=== PATIENT | female | born 1980 | race African-American/Black ===

== ENCOUNTER 2024-02-15 18:47 | Emergency (ER) | payer BC, SELFPAY ==
--- NOTE | ~2024-02-15 | XR_ITS ---
EXAMINATION: XR chest 2V DATE: 02/15/2024 20:14 INDICATION: Chest pain TECHNIQUE: PA and lateral views of the chest are obtained. COMPARISON: None available FINDINGS: The lungs are free of acute opacities. No pleural effusion or pneumothorax. The cardiomedia stinal silhouette is normal. The visualized bones and soft tissues are unremarkable. IMPRESSION: 1. No acute cardiopulmonary abnormality. Reviewed, dictated and finalized at location F.
--- NOTE | 2024-02-15 18:50 | ECG_ITS ---
Measurements Intervals Mason Rate: 66 P: 51 TN: 156 QRS: -5 QRSD: 82 T: 13 QT: 403 QTc: 425 Interpretive Statements SINUS RHYTHM ANTERIOR INFARCT, AGE INDETERMINATE BORDERLINE T WAVE ABNORMALITY- INF/LAT LEADS ABNORMAL ECG NO PREVIOUS ECG AVAILABLE FOR COMPARISON Electronically Signed On 02-16-2024 6:32:49 CDT by Darryl Rizvi D.O.
[2024-02-15 18:59] VITALS: BP 199/91; PULSE 72; RESP 18; TEMP 36.6; O2SAT 100
[2024-02-15] MEDS: ASPIRIN 81 MG CHEWABLE TABLET 324 MG PO (19:09)
[2024-02-15 19:21] LABS: Basophils Percent Auto 0.5 % (0.2-1.2); Eosinophils Absolute Auto 0.1 K/mm3 (0-0.3); Eosinophils Percent Auto 1.4 % (0-4.4); Hematocrit 34.1 % (37.0-47.0); Hemoglobin 10.3 g/dL (12.0-15.0); Immature Granulocyte Absolute 0.02 K/mm3 (0.00-0.031); Immature Granulocyte Percent A 0.3 % (0-0.5); Lymphocytes Absolute Auto 2.13 K/mm3 (0.9-3.2); Lymphocytes Percent Auto 32.4 % (18.3-44.2); Mean Corpuscular HGB Conc 30.2 g/dl (32-36); Mean Corpuscular Hemoglobin 23.5 pg (26-34); Mean Corpuscular Volume 77.9 fl (80-100); Mean Platelet Volume 9.8 fl (7.4-10.4); Monocytes Absolute Auto 0.6 K/mm3 (0.1-0.6); Monocytes Percent Auto 8.8 % (2.6-8.5); Neutrophils Absolute Auto 3.7 K/mm3 (1.3-6.7); Neutrophils Percent Auto 56.6 % (45.5-73.1); Platelet Count Result 328 k/mm3 (150-375); Red Blood Count 4.38 M/mm3 (4.2-5.4); Red Cell Distribution Width 16.8 % (11.5-14.5); White Blood Count 6.6 K/mm3 (4.5-10.0)
[2024-02-15 19:39] LABS: Alanine Aminotransferase 22 U/L (6-35); Albumin Level 4.3 g/dL (3.5-5.1); Alkaline Phosphatase 81 U/L (38-126); Anion Gap 6 mmol/L (8-16); Aspartate Amino Transferase 34 U/L (14-36); Bilirubin,Total 0.7 mg/dL (0.2-1.3); Blood Urea Nitrogen 9 mg/dL (7-17); Carbon Dioxide 24 mmol/L (22-30); Chloride 107 mmol/L (98-107); Estimated CRCL calculation 77 ml/min; Estimated Glomerular Filt Rate > 60; Glucose 93 mg/dL (65-110); Lipase 93 U/L (23-300); Potassium 3.8 mmol/L (3.4-5.0); Sodium 137 mmol/L (137-145)
[2024-02-15 19:43] LABS: INR 0.9; Prothrombin Time 12.3 Seconds (11.1-14.7)
[2024-02-15 19:44] LABS: Partial Thromboplastin Time 28.7 Seconds (22.3-36.8)
[2024-02-15 19:50] LABS: Troponin I < 0.012 ng/mL (0.000-0.034)
[2024-02-15 20:55] VITALS: BP 185/87; PULSE 71; RESP 16; O2SAT 100
[2024-02-15 21:15] VITALS: O2SAT 100
--- NOTE | 2024-02-15 21:50 | ECG_ITS ---
Measurements Intervals [place] Rate: 61 P: 50 LA: 161 QRS: 0 QRSD: 80 T: 12 QT: 430 QTc: 436 Interpretive Statements SINUS RHYTHM LOW QRS VOLTAGE IN PRECORDIAL LEADS ANTEROSEPTAL INFARCT, AGE INDETERMINATE BORDERLINE T WAVE ABNORMALITY- INF/LAT LEADS ABNORMAL ECG COMPARED TO ECG 02/15/2024 18:59:11 NO SIGNIFICANT CHANGES Electronically Signed On 02-16-2024 6:36:34 CDT by Darryl Rizvi D.O.
[2024-02-15 22:35] LABS: Troponin I < 0.012 ng/mL (0.000-0.034)
--- NOTE | 2024-02-15 22:35 | ED.GENADULT ---
HPI - General Adult General Chief complaint: Chest Pain Stated complaint: Hypertension Time Seen by Provider: 02/15/24 22:04 History of Present Illness HPI narrative: This is a 44-year-old female presenting with chief complaint of hypertension. Patient took a energy pill earlier. since then she having some fluttering and discomfort in her chest. However she has been having this chest discomfort for several years had several times per week. the pain is described as achy pain in the center of her chest that is nonradiating, 5/10 intensity, comes and goes several times a day and several times a week. tt is not associated with diaphoresis vomiting or exertion. like She checked her blood pressure since then has been elevated at 170/100. She says she has checked her blood pressure too many times to count. She then came to the hospital for evaluation after being told that her blood pressure was dangerously high. At the moment the patient is pain-free with no chest pain difficulty breathing or neurologic symptoms. Related Data Allergies Allergy/AdvReac Type Severity Reaction Status Date / Time latex AdvReac Hives Verified 02/15/24 19:08 Exam Narrative: APPEARANCE: Patient is well-appearing pleasant polite Head: atraumatic. EYES: EOMI, NOSE: Atraumatic NECK: Trachea midline RESPIRATORY: No increased rate of breathing clear auscultation CARDIOVASCULAR: RRR, no peripheral edema ABDOMINAL: Non-distended MUSCULOSKELETAl: No obvious deformities NEURO: Alert. Cranial nerves 2-12 grossly intact. Sensation light touch, motor function cerebellar function intact for 4 extremities. Gait exam was normal. SKIN:: Warm, dry. Normal color PSYCHIATRIC: Normal affect Course Vital Signs Vital signs: Vital Signs Temperature 97.9 F 02/15/24 18:59 Pulse Rate 72 02/15/24 18:59 Respiratory Rate 18 02/15/24 18:59 Blood Pressure 199/91 H 02/15/24 18:59 Pulse Oximetry 100 02/15/24 18:59 Oxygen Delivery Room Air 02/15/24 18:59 Temperature 97.9 F 02/15/24 18:59 Pulse Rate 71 02/15/24 20:55 Respiratory Rate 16 02/15/24 20:55 Blood Pressure 185/87 H 02/15/24 20:55 Pulse Oximetry 100 02/15/24 21:15 Oxygen Delivery Room Air 02/15/24 21:15 Medical Decision Making MDM Narrative Medical decision making narrative: -Course: 44-year-old female presenting with concerns about hypertension And chest pain. Chest pain has been chronic for years and is noncardiac. Blood pressures are mildly elevated improving without intervention. at this time patient is asymptomatic. Patient will be discharged with primary care follow-up for further management possible hypertension. 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 Chest x-ray normal. Independent EKG interpretation: Rhythm [sinus], Rate [66], [place] -[normal], [place] -[normal], QRS [narrow], QTC [normal], T waves -[negative for concerning inversions], ST Segments - [Negative for concerning elevations] Final interpretations: [Normal Sinus Rhythm] -Shared decision making / Disposition:discharged. Vital Signs Vital Signs: Vital Signs Temperature 97.9 F 02/15/24 18:59 Pulse Rate 72 02/15/24 18:59 Respiratory Rate 18 02/15/24 18:59 Blood Pressure 199/91 H 02/15/24 18:59 Pulse Oximetry 100 02/15/24 18:59 Oxygen Delivery Room Air 02/15/24 18:59 Temperature 97.9 F 02/15/24 18:59 Pulse Rate 71 02/15/24 20:55 Respiratory Rate 16 02/15/24 20:55 Blood Pressure 185/87 H 02/15/24 20:55 Pulse Oximetry 100 02/15/24 21:15 Oxygen Delivery Room Air 02/15/24 21:15 Lab Data 02/15/24 19:10 02/15/24 19:10 Labs: Lab Results 02/15/24 02/15/24 Range/Units 19:10 21:59 WBC 6
[2024-02-15 22:57] VITALS: BP 156/82; PULSE 63; RESP 16; O2SAT 99
== END 2024-02-15 22:59 | disposition home or self-care (01) ==
LOC: ANHED 22:46
PROVIDERS: Emergency Medicine; Emergency Provider Emergency Medicine
DX: R07.89 Other chest pain (principal); I10 Essential (primary) hypertension; R94.31 Abnormal electrocardiogram [ECG] [EKG]
CPT/HCPCS: 36415; 71046; 80053; 83690; 84484; 85025; 85610; 85730; 93005; 99284; A9270

== ENCOUNTER 2024-06-12 12:43 | Emergency (ER) | payer OTHER, BC, SELFPAY ==
--- NOTE | ~2024-06-12 | XR_ITS ---
XR elbow RT min 3V Ordering provider: Anton Moon APRN History: . elbow injury, hit/lift injury, minimal swelling . Comparison: None. FINDINGS: BONES: Sclerotic area in the radial head is seen which may indicate a fracture. Follow-up advised. JOINT SPACES: Normal. SOFT TISSUES: Unremarkable. No definite joint effusion. IMPRESSION: Sclerotic area in the radial head is seen which may indicate a fracture. Follow-up advised. Reviewed, dictated and finalized at location A. IMPRESSION: Sclerotic area in the radial head is seen which may indicate a fracture. Follow -up advised.
[2024-06-12 12:55] VITALS: BP 155/99; PULSE 91; RESP 16; TEMP 37.2; O2SAT 100
--- NOTE | 2024-06-12 14:35 | ED.UPPEXIN ---
HPI - Extremity Injury (Upper) General Chief Complaint: Extremity Injury, Upper Stated Complaint: r arm pain Time Seen by Provider: 06/12/24 12:52 History of Present Illness HPI narrative: 44-year-old female presents to the emergency room for evaluation of right elbow pain sustained an injury a couple of days ago. 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 Patient states that she immediately experienced pain in her forearm and triceps. States she experienced pain to her right elbow that was worse with extension. Took Tylenol with some improvement of pain. Admits to increased weakness to her right arm. Related Data Allergies Allergy/AdvReac Type Severity Reaction Status Date / Time latex AdvReac Hives Verified 06/12/24 14:04 Review of Systems Review of Systems: ROS unremarkable except for noted in HPI Exam Narrative: GENERAL: Well-appearing, well-nourished, no physical limitations, and in no acute distress. HEAD: Normocephalic, atraumatic. EYES: Conjunctivae normal, PERRLA and EOMI. CHEST: Clear to auscultation. No respiratory distress. No wheezes rales or rhonchi. HEART: Regular rate and rhythm. No murmur heard. Normal peripheral pulses. EXTREMITIES: RUE: +TTP to olecranon, no obvious bony abnormality, no ecchymosis, full range of motion of elbow joint. 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 No noted wounds NEURO: No focal deficits. Alert and oriented x3. MAEW. CN's II-XI intact bilaterally, normal gait PSYCH: Cooperative. Normal mood and affect. Course Vital Signs Vital signs: Vital Signs Temperature 37.2 C 06/12/24 12:55 Pulse Rate 91 06/12/24 12:55 Respiratory Rate 16 06/12/24 12:55 Blood Pressure 155/99 H 06/12/24 12:55 Pulse Oximetry 100 06/12/24 12:55 Oxygen Delivery Room Air 06/12/24 12:55 Temperature 37.2 C 06/12/24 12:55 Pulse Rate 91 06/12/24 12:55 Respiratory Rate 16 06/12/24 12:55 Blood Pressure 155/99 H 06/12/24 12:55 Pulse Oximetry 100 06/12/24 12:55 Oxygen Delivery Room Air 06/12/24 12:55 MDM - Extremity Injury (Upper) Imaging Data Radiologist's impression: Impressions Elbow X-Ray 06/12/24 15:35 IMPRESSION: Sclerotic area in the radial head is seen which may indicate a fracture. Follow-up advised. Discharge Plan Discharge Clinical Impression: Cubital tunnel syndrome on right, Closed fracture of left elbow Patient Disposition: Home, Self-Care Condition: Stable Instructions: Antibiotic Form, Arm Fracture in Adults (ED) Follow-up/Referrals: Jonas Angel MD [Physician] - UNKNOWN,DOCTOR [Primary Care Provider] - Stand Alone Forms: Work/School Release IP Time of Disposition: 15:41
[2024-06-12 15:45] VITALS: BP 123/87; PULSE 87; RESP 19; O2SAT 97
== END 2024-06-12 16:00 | disposition home or self-care (01) ==
PROVIDERS: Emergency Provider Nurse Practitioner Family
DX: S42.401A Unspecified fracture of lower end of right humerus, initial encounter for closed fracture (principal); G56.21 Lesion of ulnar nerve, right upper limb; W22.8XXA Striking against or struck by other objects, initial encounter
CPT/HCPCS: 29105; 73080; 99284; A4565

== ENCOUNTER 2025-01-29 11:42 | Emergency (ER) | payer MEDICAID, SELFPAY ==
[2025-01-29 11:46] VITALS: BP 169/102; PULSE 74; RESP 16; TEMP 36.7; O2SAT 100
--- NOTE | 2025-01-29 12:42 | ED_ITS ---
HPI - Dental/Oral General Chief complaint: Dental/Oral Stated complaint: Left side face swelling Time Seen by Provider: 01/29/25 12:02 History of Present Illness HPI Narrative: Patient is a 45-year-old female who presents ER with left-sided dental pain. Upper jaw. Radiates to her ear. No facial swelling but thinks it may be starting. No intraoral swelling. No fevers chills or sweats. Related Data Allergies Allergy/AdvReac Type Severity Reaction Status Date / Time latex AdvReac Hives Verified 06/20/24 08:45 Review of Systems Constitutional: Constitutional: Reports no additional constitutional complaints ENT: Reports system reviewed and no additional complaints, except as documented PMFSH Family History Family History (Updated 06/20/24 @ 08:46 by WILLIAM Parikh) Father No problems noted. Mother Diabetes mellitus Sibling No problems noted. Social History Social History (Updated 06/20/24 @ 08:47 by WILLIAM Parikh) Smoking status: Never smoker Second hand tobacco smoke exposure: Yes Alcohol intake: current Substance use: never Substance use type: does not use Do You Feel Safe in your Home?: Yes Lack of Transportation: No Lack of Food: Never True Current Housing: I Have Housing Concerned About Future Housing: No Difficulty Paying Gas/Electric Bills: Decline to Answer Difficulty Paying for Meds: Decline to Answer Currently Unemployed: Decline to Answer Education: Trade/Vocational Certificate Difficulty w/ Childcare or Family Care: No Living arrangements: with family Occupation/Education: occupation 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 HEAD: Normocephalic, atraumatic ENT: Tender at tooth number 13. No discernible abscess. EXTREMITIES: Normal range of motion. No edema. SKIN: Warm, dry, no rash. NEURO: Alert and oriented x3. PSYCH: Normal mood and affect. Course Course Emergency Course: Resting comfortably. Discharge with oral antibiotic. Will give dental referral line. Vital Signs Vital signs: Vital Signs Temperature 98.0 F 01/29/25 11:46 Pulse Rate 74 01/29/25 11:46 Respiratory Rate 16 01/29/25 11:46 Blood Pressure 169/102 H 01/29/25 11:46 Pulse Oximetry 100 01/29/25 11:46 Oxygen Delivery Room Air 01/29/25 11:46 Temperature 98.0 F 01/29/25 11:46 Pulse Rate 71 01/29/25 12:50 Respiratory Rate 19 01/29/25 12:50 Blood Pressure 155/93 H 01/29/25 12:50 Pulse Oximetry 99 01/29/25 12:50 Oxygen Delivery Room Air 01/29/25 11:46 Discharge Plan Discharge Clinical Impression: Toothache Patient Disposition: Home, Self-Care Condition: Stable Instructions: Antibiotic Form, Toothache (ED) Additional Instructions: Return to the ER if you cannot breathe, you cannot swallow, or you have additional concerns. Patient Language: Tajik Prescriptions: New amoxicillin-pot clavulanate 875-125 mg tablet 1 tablet PO Q12H Qty: 20 0RF Follow-up/Referrals: Dental Referral Line [Outside] - 1 Week Endy Deras MD [Primary Care Provider] -
[2025-01-29 12:49] VITALS: BP 155/93; PULSE 71; RESP 19; O2SAT 99
[2025-01-29 12:50] VITALS: BP 155/93; PULSE 71; RESP 19; O2SAT 99
--- OUTSIDE RECORDS SUMMARY | 2025-01-29 13:23 | XMS_ITS | Data Portability ---
Author Organization [facility] [employer], Main Office Address [address] [place] [address] Assessment No assessment recorded. Plan of Treatment Reminders Order Date Submit Date Provider Last Modified By Organization Details Last Modified Time Details Appointments None recorded. Lab CBC w/ auto diff [address] (Lab), [address] [place], [address], 3 14:40:16 CMP, serum or plasma [address] (Lab), [address] [place], [address], 3 14:40:17 lipid panel, serum [address] (Lab), [address] [place], [address], 3 14:40:17 CK (creatine kinase), total, serum [address] (Lab), [address] [place], [address], 3 14:40:17 glycohemogl obin, total, blood [address] (Lab), [address] [place], [address], 3 14:40:15 unlisted lab - free thyroxine w/TSH [address] (Lab), [address] [place], [address], 3 14:40:15 vitamin D3, 25-hydroxy, serum [address] (Lab), [address] [place], [address], 3 14:40:15 vitamin B12 + folate, serum or blood [address] (Lab), [address] [place], [address], 3 14:40:15 RPR (rapid plasma reagin), serum [address] (Lab), [address] [place], [address], 3 14:40:15 hsv (1+2) igg Ab, serum [address] (Lab), [address] [place], [address], 3 09:38:54 HIV (1+2) Ab screen, serum [address] (Lab), [address] [place], [address], 3 14:40:16 hepatitis C virus Ab, serum [address] (Lab), [address] [place], [address], 3 14:40:16 HBsAg (hepatitis B surface Ag), serum [address]Lab), [address] [place], [address], 3 14:40:16 HIV (1+2) Ab screen, serum [address] (Lab), [address] [place], [address], 3 14:40:16 unlisted lab - CT, NG, trich vag by MORENA [address] (Lab), [address] [place], [address], 3 14:40:16 hepatitis panel (A+B+C), acute, serum [address] (Lab), [address] [place], [address], 3 14:40:16 Referral gynecologis t referral - Needs a pap smear , last one over 2 years ago . Thank you 2022 023 [email or web address] 3 Kris Matt MD, [address] [facility] [address], [place], [address], 3 07:55:44 Procedures None recorded. Surgeries None recorded. Imaging None recorded. Medication Orders escitalopra m 10 mg tablet 2022 023 ROS[facility] #[id number], [address] [place], [place], [id number], 3 11:06:12 escitalopra m 20 mg tablet 2022 023 ROSALIA [facility] #[id number], [address] [place], [place], [id number], 3 11:06:11 Patient TargetsNo targets recorded. Patient Instructions Encounter Date Encounter Id Patient Instructions Last Modified By Organization Details Last Modified Time 07/21/2023 [id number] Advised getting the Dalia : [employer]; get a counselor, she had planned to [email or web address] Not available 07/22/2023 11:27:41 08/04/2023 [id number] reviewed STD screen , negative [email or web address] Not available 08/07/2023 09:53:40 Reason for Referral [employer] Referral for In reening for malignant neoplasm of cervix Needs a pap smear , last one over 2 years ago . Thank you Referring Physician: Gulshan Angel, Family Medicine, Encounter Date: 08/04/2023 Results Created Date Observation Date Name Description Value Unit Range Abnormal Flag Note LastModifiedBy Organization Detail LastModifiedTime Result Notes None recorded. Problems Name Problem SNOMED Code Status Onset Date Resolution Date Notes Provider Name and Address Organization Details Recorded Time Screening for disorder Active 2022 SHILOH T[address]l [address], [address], [place], [address] , [employer] 3 10:59:00 Venereal disease screening Active 2022 SHILOH Tidwell [address], [address], [place], [address] , [place] [facility] [employer] 3 10:59:10 At increased risk of nutritional deficit 287797218 Active 2022 SHILOH Tidwell [address], [place], [address] , [place] [employer] 3 10:59:32 Obese 780454059 Active 2022 SHILOH Tidwell [address], [place], [address] , [place] [employer] 3 10:59:52 Anxiety 70492332 Active 2022 SHILOH Tidwell [address], [place], [address] , [place] [employer] [facility] 3 11:04:39 Screening for malignant neoplasm of cervix Active 2022 SHILOH Tidwell [address], [place], [address] , [facility] 3 11:05:31 Acute urinary tract infection 124812886 [facility] 3 11:40:57 Increased frequency of urination 777219357 Active 2022 SHILOH Tidwell [address], [place], [address] , [facility] 3 11:55:29 Hyperlipidemi a 25584753 Active 2022 SHILOH Tidwell [address], [address], [place], [address] , [facility] 3 16:52:22 Vitamin D deficiency 75688301 Active 2022 SHILOH Tidwell [address], [address], [place], [address] , [facility] 3 16:52:36 Problem Notes None recorded. Procedures Surgical History Date Name Laterality Status Provider Name and Address Organization Details Recorded Time section completed Darcy Cardenas MA [facility] 07/21/2023 10:51:26 Tubal Ligation completed Darcy Cardenas MA [facility] 07/21/2023 10:51:37 Imaging Results None recorded. Procedure Notes None recorded. Medical Equipment None Reported. Allergies Allergen ID Allergen Name Allergen Category Reaction Reaction Severity Criticality Documentation Date Start Date Code Code System Note Provider Name and Address Organization Details Recorded Time 39239 latex environme nt,medica tion Not available Not available Not available 07/21/2023 53641 91 RxNorm KATIUSKA Razo, [facility] 3 10:49:12 Medications Name Sig Start Date Stop Date Status Note LastModified by Organization Details LastModified Time metronidazol e 0.75 % (37.5 mg/5 gram) vaginal gel INSERT 1 APPLICATORF UL VAGINALLY EVERY NIGHT FOR 5 DAYS active Not Available Not Available N ot Available sulfamethoxa zole 800 mg-trimethop rim 160 mg tablet TAKE 1 TABLET BY MOUTH EVERY 12 HOURS FOR 10 DAYS active Not Available Not Available Not Available polymyxin B sulfate 10,000 unit-trimeth oprim 1 mg/mL eye drops INSTILL 1 DROP IN BOTH EYES FOUR TIMES DAILY FOR 7 DAYS active Not Available Not Available No t Available escitalopram 10 mg tablet TAKE 1 TABLET BY MOUTH EVERY DAY IN THE MORNING FOR 7 DAYS active Not Available Not Available No t Available escitalopram 20 mg tablet TAKE 1 TABLET BY MOUTH EVERY DAY IN THE MORNING *MUST FILL MAIL ORDER* active Not Available Not Available Not Available ezetimibe 10 mg tablet TAKE 1 TABLET BY MOUTH EVERY DAY IN THE MORNING active Not Available Not Available No t Available cholecalcife rol (vitamin D3) 50 mcg (2,000 unit) capsule Take 1 capsule every day by oral route with meals for 30 days. 2022 active Not Available Not Available Not Meg labkristi Vitals Date Recorded Body weight Body mass index (BMI) Body height Body temperature Heart rate Oxygen saturation Oxygen saturation in Arterial blood by Pulse oximetry Systolic blood pressure Diastolic blood pressure Provider Name and Address Organization Details Last Updated DateTime 3 90279.1 8 g 36.3 kg/m2 152.4 cm 98.1 [degF] 91 /min 98 % 98 % 132 mm[Hg] 82 mm[Hg] Darcy Cardenas MA [facility] [employer] 3 10:44:07 Date Recorded Body height Body mass index (BMI) Body weight Body temperature Heart rate Oxygen saturation Oxygen saturation in Arterial blood by Pulse oximetry Systolic blood pressure Diastolic blood pressure Provider Name and Address Organization Details Last Updated DateTime 3 152.4 cm 36.1 kg/m2 09136.5 9 g 97.6 [degF] 86 /min 98 % 98 % 144 mm[Hg] 90 mm[Hg] Darcy Cardenas MA [facility] [employer] 3 11:00:13 Social History Question Answer Notes LastModified by Organizat ion Details LastModified Time Tobacco Smoking Status Never Smoker KATIUSKA Razo [facility] [employer] [facility] 07/21/2023 10:50:57 What Is Your Level Of Alcohol Consumption? Occasional Information not available 07/21/2023 What Is Your Level Of Caffeine Consumption? Occasional [email or web address] Information not available 07/21/2023 Do You Use Your Seat Belt Or Car Seat Routinely? Yes Information not available 07/21/2023 Do You Participate In Social Media? No [email or web address] Information not available 07/21/2023 Do You Feel Stressed (tense, Restless, Nervous, Or Anxious, Or Unable To Sleep At Night)? BY1056-6 [email or web address] Information not available 07/21/2023 Do You Use Any Illicit Or Recreational Drugs? No [email or web address] Information not available 07/21/2023 Sex: Unknown Functional Status None recorded. Mental Status None recorded. Family History Relationship Description Onset Age of this Age Resolved Age Notes LastModified by Organization Details LastModified Time Father No current problems or disability [email or web address] Not available 10:49:31 Mother No current problems or disability [email or web address] Not available 10:49:31 Medical History No medical history recorded. Gynecological HistoryNo gynecological history recorded. Obstetrics History GPAL:G 0 P 0 0 0 0 Past Encounters Encounter ID Performer Location Encounter Start Date Encounter Closed Date Diagnosis/Indication Diagnosis SNOMED-CT Code Diagnosis ICD10 Code Diagnosis Note [id number] SHILOH Tidwell [facility] [place] [address] 07/21/2023 10:33:18 07/21/2023 11:12:11 Screening for disorder 752859099 Z13.9 Venereal d isease screening 452116542 Z11.3 At [facility] risk of nutritional deficit 335214720 Z91.89 Obese 135833922 E66.9 Anxiety 13220808 F41.9 [id number] SHILOH Tidwell [facility] Javad booker [address] [place] [address] 08/04/2023 10:55:35 08/04/2023 11:11:46 Screening for malignant neoplasm of cervix 998207945 Z12.4 Anxiety 30256623 F41.9 Obese 091787036 E66.9 Health Concerns Section Related Observation LastModified by Organization Detai ls LastModified Time None Recorded Concern Status LastModified by Organization Details LastModified Time None Recorded Advance Directives Directive None Recorded Payers Encounter Date Sequence Insurance Name Policy Number Policy Cadena Covered Member ID Cadena Member ID Guarantor Name 07/21/2023 1 [place] [id number] Jessie Smith [id number] Jessie Smith 08/04/2023 1 [place] [id number] Jessie Smith [id number] Jessie Smith Notes Date Note Type Note Provider Name and Address Organization Details Recorded Time 07/21/2023 text/html 43 y/o : concentrating is difficult . Her has not been faithful , she has no symptom , but wants to be screened . She moved over here from [place] to get away from him . She was on a medicine over a year ago , cannot remember what . It helped. SHILOH Tidwell [address], [place], [address], [employer] 07/22/2023 11:27:57 08/04/2023 text/html doing better, le ss anxious SHILOH Tidwell [address], [place], [address], [employer] 08/07/2023 09:54:17 OBGyn Episode No OBEpisode recorded.
--- OUTSIDE RECORDS SUMMARY | 2025-01-29 13:23 | XMS_ITS | Referral Summary ---
Author Organization [facility] [place] [address] [facility] Address [address] [place] [address] Care Team Providers Care Nuclear Weapons Specialist Name Role Phone Jhony Fernandez MD Primary Care Provider + Allergies Active Allergy Reactions Criticality Noted Date Comments Latex Hives,Itching Medium 07/06/2012 Medications escitalopram (LEXAPRO) 20 mg tablet Take 1 tablet (20 mg total) by mouth daily Active Active Problems Problem Noted Date Diagnosed Date History of ectopic 04/09/2013 Immunizations Immunization Administration Dates Next Due Influenza, Quadrivalent, Spl it, Preservative Free, Intramuscular 08/19/2016,12/25/2015 TD Preservative Free 05/16/2017 Tdap 03/01/2020,08/19/2016 Social History Tobacco Use Types Packs/Day Years Used Date Smoking Tobacco: Never Smokeless Tobacco: Never Alcohol Use Standard Drinks/Week Comments No 0 (1 standard drink = 0.6 oz pur e alcohol) PHQ-2 Answer Date Recorded PHQ-2 Score 0 11/28/2019 Personal Safety Answer Date Recorded Getting School Help Needed Not on file 01/16 Comments Unknown Sex and Gender Information Value Date Recorded Sex Assigned at Not on file 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 Gender Identity Not on file Sexual Orientation Not on file Last Filed Vital Signs Vital Sign Reading Time Taken Comments Blood Pressure 122/85 09/11/2024 2:27 PM CDT Pulse 73 09/11/2024 2:27 PM CDT Temperature 36.2 C (97.2 F) 09/11/2024 2:27 PM CDT Respiratory Rate 18 09/11/2024 2:27 PM CDT Oxygen Saturation 99% 09/11/2024 2:27 PM CDT Inhaled Oxygen Concentration - - Weight 84.9 kg (187 lb 3.2 oz) 09/11/2024 2:27 P M CDT Height 152.4 cm (5') 09/11/2024 2:27 PM CDT Body Mass Index 36.56 09/11/2024 2:27 PM CDT Plan of Treatment Not on file Insurance [facility] Care Teams Nuclear Weapons Specialist Relationship Specialty Start Date End Date Tables, Jhony Weinstein MD PCP - General Family Medicine 08/30/19
--- OUTSIDE RECORDS SUMMARY | 2025-01-29 13:23 | XMS_ITS | Clinical Summary ---
Author Organization [facility] [place] [address] [facility] Address [address] [facility] [place] [address] Care Team Providers Care Cpht Name Role Phone Jhony Fernandez MD Primary [...] 08/19/2016,12/25/2015 TD Preservative Free 05/16/2017 Tdap 03/01/2020,08/19/2016 Surgical History Surgery Date Site/Laterality Comments SECTION TUBAL LIGATION SALPINGOSTOMY 11/27/2011 - 11/26/2012 Right Medical History Medical History Date Comments Hypertension 2016 induce d Uterine fibroid Herpes Family History Medical History Relation Name Comments Hypertension Brother Diabetes Mother Hypertension Mother Relation Name Status Comments Brother Mother Social History Tobacco Use Types Packs/Day Years [...] on file 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 Gender Identity Not on file Sexual Orientation Not on file Obstetrics History Last Filed Vital Signs Vital Sign Reading [...] 09/11/2024 2:27 PM CDT Plan of Treatment Health Maintenance Due Date Last Done Comments Breast Cancer Screening-Mammogram 1979 Cervical Cancer Screening 1979 Colon Cancer Screening-Colonoscopy 1979 Hepatitis C Screening 1979 Hepatitis B Screening 1997 Regular Well Visit/Exam 18-64 1997 Depression Screening 11/28/2020 11/28/2019 Covid-19 Vaccine (3 - 2023-2 5 season) 2024 01/26/2023, 08/05/2021 Influenza Vaccine (#1) 2024 , 08/19/2016, 12/25/2015 DTaP/Tdap/Td Vaccine (4 - Td or Tdap) 03/01/2030 03/01/2020, 05/16/2017, 08/19/2016 HPV Vaccines Aged Out No longer eligi ble based on patient's age to complete this topic Pneumococcal vaccine <65 Aged Out No longer eligible based on patient's age to complete this topic Insurance [facility] ACCESS Care Teams Cpht Relationship Specialty Start Date End Date Tables, Jhony Weinstein MD PCP - General Family Medicine 08/30/19
--- OUTSIDE RECORDS SUMMARY | 2025-01-29 13:51 | XMS_ITS | Referral Summary ---
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
--- OUTSIDE RECORDS SUMMARY | 2025-01-29 13:51 | XMS_ITS | Clinical Summary ---
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
== END 2025-01-29 12:52 | disposition home or self-care (01) ==
PROVIDERS: Emergency Provider Emergency Medicine; PCP Emergency Medicine
DX: K08.89 Other specified disorders of teeth and supporting structures (principal); Z77.22 Contact with and (suspected) exposure to environmental tobacco smoke (acute) (chronic)
CPT/HCPCS: 99283

== ENCOUNTER 2025-05-03 07:37 | Emergency (ER) | payer BC, SELFPAY ==
--- NOTE | ~2025-05-03 | XR_ITS ---
EXAMINATION: XR wrist RT min 3V DATE: 05/03/2025 08:10 INDICATION: Snuffbox tenderness at the right wrist TECHNIQUE: Posteroanterior, ulnar deviation, oblique, and lateral views of the right wrist were obtai rosendo. COMPARISON: none FINDINGS: Alignment is normal. No fracture. Mild osteoarthritis at the first carpometacarpal joint. Soft tissue s are unremarkable. IMPRESSION: 1. Mild osteoarthritis at the first carpometacarpal joint. Otherwise unremarkable right wrist radiogr aphs. Reviewed, dictated and finalized at location A. IMPRESSION: 1. Mild osteoarthritis at the first carpometacarpal joint. Otherwise unremarkab le right wrist radiographs.
--- OUTSIDE RECORDS SUMMARY | 2025-05-03 07:40 | XMS_ITS | Clinical Summary ---
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 Gender Identity Not on file Sexual Orientation [...] 5 season) 2024 01/26/2023, 08/05/2021 Influenza Vaccine (Season Ended) 2025 10/20/2023, 08/19/2016, 12/25/2015 DTaP/Tdap/Td Vaccine (4 - Td or Tdap) 03/01/2030 03/01/2020, 05/16/2017, 08/19/2016 HPV Vaccines Aged Out No longer eligi ble based on patient's age to complete this topic Pneumococcal vaccine <65 Aged Out No longer eligible based on patient's age to complete this topic Insurance [facility] ACCESS Care Teams Manager Transfusion Relationship Specialty Start Date End Date Tables, Jhony Weinstein MD PCP - General Family Medicine 08/30/19
--- OUTSIDE RECORDS SUMMARY | 2025-05-03 07:40 | XMS_ITS | Data Portability ---
Author Organization [facility], Main Office Address [address] [place] [address] Assessment No assessment recorded. Plan of Treatment Reminders Order Date Submit Date Provider Last Modified By Organization Details Last Modified Time Details Appointments None recorded. Lab CBC w/ auto diff [address]Lab), [address] [place], [address], 3 14:40:16 CMP, serum or plasma [address] (Lab), [address] [place], [address], 3 14:40:17 lipid panel, serum [address] (Lab), [address] [place], [address], 3 14:40:17 CK (creatine kinase), total, serum [address] (Lab), [address] [place], [address], 3 14:40:17 glycohemogl obin, total, blood [address] (Lab), [address] [place], [address], 3 14:40:15 unlisted lab - free thyroxine w/TSH [address] (Lab), [address] [place], [address], 3 14:40:15 vitamin D3, 25-hydroxy, serum [address] (Lab), [address] [place], [address], 3 14:40:15 vitamin B12 + folate, serum or blood [address] (Lab), [address] [place], [address], 3 14:40:15 RPR (rapid plasma reagin), serum [address] (Lab), [address] [place], [address], 3 14:40:15 hsv (1+2) igg Ab, serum [address] (Lab), [address] [place], [address], 3 09:38:54 HIV (1+2) Ab screen, serum [address] (Lab), [address] [place], [address], 3 14:40:16 hepatitis C virus Ab, serum [address] (Lab), [address] [place], [address], 3 14:40:16 HBsAg (hepatitis B surface Ag), serum [address] (Lab), [address] [place], [address], 3 14:40:16 HIV (1+2) Ab screen, serum [address] (Lab), [address] [place], [address], 3 14:40:16 unlisted lab - CT, NG, trich vag by MORENA [address] (Lab), [address] [place], [address], 3 14:40:16 hepatitis panel (A+B+C), acute, serum [address] (Lab), [address] [place], [address], 3 14:40:16 Referral gynecologis t referral - Needs a pap smear , last one over 2 years ago . Thank you 2022 023 [email or web address] 3 Kris Matt MD, [address] [facility] [address], [place], [address], 3 07:55:44 Procedures None recorded. Surgeries None recorded. Imaging None recorded. Medication Orders escitalopra m 10 mg tablet 2022 023 [facility] [id number], [address] [place], [place], [id number], 3 11:06:12 escitalopra m 20 mg tablet 2022 023 [id number], [address] [place], [place], [id number], 3 11:06:11 Patient TargetsNo targets recorded. 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 Referral for Nh reening for malignant neoplasm of cervix Needs [...] Time Screening for disorder Active 2022 SHILOH Tidwell [address], [place], [address] , [employer] 3 10:59:00 Venereal disease screening Active 2022 SHILOH Tidwell [address], [place], [address] , [place] [facility] [employer] [facility] [employer] 3 10:59:10 At increased risk of nutritional deficit 605411226 Active 2022 SHILOH Tidwell [address], [place], [address] , [employer] [facility] [employer] 3 10:59:32 Obese 356777735 Active 2022 SHILOH Tidwell [address], [place], [address] , [place] [employer] [facility] [employer] 3 10:59:52 Anxiety 67462710 Active 2022 SHILOH Tidwell [address], [place], [address] , [place] [employer] [facility] 3 11:04:39 Screening for malignant neoplasm of cervix Active 2022 SHILOH Tidwell [address], [place], [address] , [facility] 3 11:05:31 Acute urinary tract infection 354524483 [facility] 3 11:40:57 Increased frequency of urination 682114275 Active 2022 SHILOH Tidwell [address], [address], [place], [address] , [facility] 3 11:55:29 Hyperlipidemi a 51209608 Active 2022 SHILOH Tidwell [address], [address], [place], [address] , [facility] 3 16:52:22 Vitamin D deficiency 43300519 Active 2022 SHILOH Tidwell [address], [place], [address] , [facility] 3 16:52:36 Problem Notes None recorded. Procedures Surgical History Date Name Laterality Status Provider Name and Address Organization Details Recorded Time section completed Darcy Cardenas MA [facility] 07/21/2023 10:51:26 Tubal Ligation completed Darcy Cardenas MA [facility] 07/21/2023 10:51:37 Imaging Results None recorded. Procedure Notes None recorded. Medical Equipment None Reported. Allergies Allergen ID Allergen Name Allergen Category Reaction Reaction Severity Criticality Documentation Date Start Date Code Code System Note Provider Name and Address Organization Details Recorded Time 29336 latex environme nt,medica tion Not available Not available Not available 07/21/2023 09902 91 RxNorm KATIUSKA Razo, [facility] 3 10:49:12 Medications Name Sig Start [...] Address Organization Details Last Updated DateTime 3 33949.1 8 g 36.3 kg/m2 152.4 cm 98.1 [degF] 91 /min 98 % 98 % 132 mm[Hg] 82 mm[Hg] Darcy Cardenas MA [facility] [employer] 3 10:44:07 Date Recorded Body height Body mass index (BMI) Body weight Body temperature Heart rate Oxygen saturation Oxygen saturation in Arterial blood by Pulse oximetry Systolic blood pressure Diastolic blood pressure Provider Name and Address Organization Details Last Updated DateTime 3 152.4 cm 36.1 kg/m2 41280.5 9 g 97.6 [degF] 86 /min 98 % 98 % 144 mm[Hg] 90 mm[Hg] Darcy Cardenas MA [facility] [employer] 3 11:00:13 Social History Question Answer Notes LastModified by Organizat ion Details LastModified Time Tobacco Smoking Status Never Smoker KATIUSKA Razo [facility] 07/21/2023 10:50:57 What Is Your Level Of Caffeine Consumption? Occasional [email or web address] Information not available 07/21/2023 Do You Use Your Seat Belt Or Car Seat Routinely? Yes [email or web address] Information not available 07/21/2023 Do You Participate In Social Media? No [email or web address] Information not available 07/21/2023 Sex: Unknown Functional Status Question Answer Note LastModified by Organizat ion Details LastModified Time Do you use any illicit or recreational drugs? No [email or web address] Information not available 07/21/2023 What is your level of alcohol consumption? Occasional [email or web address] Information not available 07/21/2023 Mental Status Question Answer Note LastModified by Organization D etails LastModified Time Do you feel stressed (tense, restless, nervous, or anxious, or unable to sleep at night)? [id number] [email or web address] Information not available 07/21/2023 Family History Relationship Description Onset Age of this Age Resolved Age Notes LastModified by Organization Details LastModified Time Father No current problems or disability [email or web address] Not available 10:49:31 Mother No current problems or disability [email or web address] Not available 10:49:31 Medical History No medical history recorded. Gynecological HistoryNo gynecological history recorded. Obstetrics History GPAL:G 0 P 0 0 0 0 Past Encounters Encounter ID Performer Location Encounter Start Date Encounter Closed Date Diagnosis/Indication Diagnosis SNOMED-CT Code Diagnosis ICD10 Code Diagnosis Note [id number] Karla Ashford MD [facility] Javad booker [address] [place] [address] [place] [address] 07/21/2023 10:33:18 07/21/2023 11:12:11 Screening for disorder 235897820 Z13.9 Venereal d isease screening 815162675 Z11.3 At formerly [facility] risk of nutritional deficit 509138153 Z91.89 Obese 425775587 E66.9 Anxiety 14291323 F41.9 [id number] Karla Ashford MD [facility] Javad booker [address] [facility] [place] [address] 08/04/2023 10:55:35 08/04/2023 11:11:46 Screening for malignant neoplasm of cervix 394403866 Z12.4 Anxiety 66728011 F41.9 Obese 116976176 E66.9 Health Concerns Section Related Observation LastModified by Organization Detai ls LastModified Time None Recorded Concern Status LastModified by Organization Details LastModified Time None Recorded Advance Directives Directive None Recorded Payers Encounter Date Sequence Insurance Name Policy Number Policy Cadena Covered Member ID Cadena Member ID Guarantor Name 07/21/2023 1 [place] [id number] eJssie Smith [id number] Jessie Smith 08/04/2023 1 [place] [id number] Jessie Smith [id number] Jessie Smith Notes Date Note Type Note Provider Name and Address Organization Details Recorded Time 07/21/2023 text/html 43 y/o : concentrating is difficult . Her has not been faithful , she has no symptom , but wants to be screened . She moved over here from [place] to get away from him . She was on a medicine over a year ago , cannot remember what . It helped. SHILOH Tidwell [address] [place] [address], [place], [address], [employer] 07/22/2023 11:27:57 08/04/2023 text/html doing better, le ss anxious SHILOH Tidwell [address], [place], [address], [employer] 08/07/2023 09:54:17 OBGyn Episode No OBEpisode recorded.
--- OUTSIDE RECORDS SUMMARY | 2025-05-03 07:40 | XMS_ITS | Referral Summary ---
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
[2025-05-03 07:48] VITALS: BP 178/102; PULSE 76; RESP 16; TEMP 36.5; O2SAT 99
[2025-05-03 08:17] VITALS: BP 167/81
--- NOTE | 2025-05-03 08:19 | ED_ITS ---
HPI - Extremity Problem General Chief complaint: Extremity Problem,Nontraumatic Stated complaint: right wrist pain Time Seen by Provider: 05/03/25 07:41 History of Present Illness HPI Narrative: Patient is a 45-year-old female who presents ER with right wrist pain. Located at the base of the thumb extending into the forearm. Worse with gripping. No known injury. 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 No numbness or tingling. Related Data Allergies Allergy/AdvReac Type Severity Reaction Status Date / Time latex AdvReac Hives Verified 05/03/25 07:38 Review of Systems Constitutional: Constitutional: Reports no additional constitutional complaints Musculoskeletal: Musculoskeletal: Reports no additional musculoskeletal complaints Neurologic: Reports system reviewed and no additional complaints, except as documented [facility] Family History Family History (Updated 06/20/24 @ 08:46 by WILLIAM Parikh) Father No problems noted. Mother Diabetes mellitus Sibling No problems noted. Social History Social History (Updated 06/20/24 @ 08:47 by WILLIAM Parikh) Smoking status: Never smoker Second hand tobacco smoke exposure: Yes Alcohol intake: current Substance use: never Substance use type: does not use Do You Feel Safe in your Home?: Yes Lack of Transportation: No Lack of Food: Never True Current Housing: I Have Housing Concerned About Future Housing: No Difficulty Paying Gas/Electric Bills: Decline to Answer Difficulty Paying for Meds: Decline to Answer Currently Unemployed: Decline to Answer Education: Trade/Vocational Certificate Difficulty w/ Childcare or Family Care: No Living arrangements: with family Occupation/Education: occupation 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 HEAD: Normocephalic, atraumatic. HEART: Regular rate and rhythm. Normal peripheral pulses. EXTREMITIES: Normal range of motion. No edema. Tender to palpation the right anatomic snuffbox but no swelling. SKIN: Warm, dry, no rash. NEURO: No focal deficits. Alert and oriented x3. PSYCH: Normal mood and affect. Course Course Emergency Course: Arthritis in the thumb. Recommend thumb spica splint as needed for pain as well as anti-inflammatory medication. Discharge. Vital Signs Vital signs: Vital Signs Temperature 97.7 F 05/03/25 07:48 Pulse Rate 76 05/03/25 07:48 Respiratory Rate 16 05/03/25 07:48 Blood Pressure 178/102 H 05/03/25 07:48 Pulse Oximetry 99 05/03/25 07:48 Oxygen Delivery Room Air 05/03/25 07:48 Temperature 97.7 F 05/03/25 07:48 Pulse Rate 76 05/03/25 07:48 Respiratory Rate 16 05/03/25 07:48 Blood Pressure 167/81 H 05/03/25 08:17 Pulse Oximetry 99 05/03/25 07:48 Oxygen Delivery Room Air 05/03/25 07:48 MDM - Extremity (Nontraumatic) Imaging Data Radiologist's impression: ITS Impressions Wrist X-Ray 05/03/25 08:24 IMPRESSION: 1. Mild osteoarthritis at the first carpometacarpal joint. Otherwise unremarkable right wrist radiographs. Discharge Plan Discharge Clinical Impression: Arthritis Patient Disposition: Home Condition: Stable Instructions: Osteoarthritis (ED) Additional Instructions: You would benefit from wearing a thumb spica splint which can be purchased at [facility] [facility]. Rate as needed for pain. Take anti- inflammatory medication to also help with her discomfort. Return the ER if your wrist is red and hot, you suffer new injury, or have additional concerns. Patient Language: Portuguese Prescriptions: New naproxen 375 mg tablet 375 mg PO BID Qty: 14 0RF No Action amoxicillin-pot clavulanate 875-125 mg tablet 1 tablet PO Q12H Qty: 20 0RF Follow-up/Referrals: Endy Deras MD [Primary Care Provider] - 1 Week
== END 2025-05-03 09:25 | disposition home or self-care (01) ==
PROVIDERS: Emergency Provider Emergency Medicine; PCP Emergency Medicine
DX: M18.9 Osteoarthritis of first carpometacarpal joint, unspecified (principal); Z77.22 Contact with and (suspected) exposure to environmental tobacco smoke (acute) (chronic)
CPT/HCPCS: 73110; 99283

== ENCOUNTER 2025-05-27 19:42 | Emergency (ER) | payer BC, SELFPAY ==
--- NOTE | ~2025-05-27 | XR_ITS ---
XR chest 1V portable Ordering provider: Fernanda Kennedy MD History: 45 years Female with . cough, sob, fatigue . Comparison: February 15, 2024 FINDINGS: MEDIASTINUM: The cardiac silhouette is slightly enlarged. LUNGS: No effusions or pneumothorax. Prominent markings in the lower lobes which may indicate bronchi tis versus early bronchopneumonia. Follow-up advised. OTHER: No free air under the diaphragm. Dextroscoliosis. IMPRESSION: Prominent bronchovascular markings in the lower lobes medially which may indicate bronchitis versus e albert bronchopneumonia. Follow-up advised. Reviewed, dictated and finalized at location A. IMPRESSION: Prominent bronchovascular markings in the lower lobes medially which may indica te bronchitis versus early bronchopneumonia. Follow-up advised.
--- OUTSIDE RECORDS SUMMARY | 2025-05-27 19:45 | XMS_ITS | Clinical Summary ---
Author Organization [facility] Address [address] [address] Phone Care Team Providers Care Refrigerator Mover Name Role Phone Hair Avitia MD Primary Care Provider [phone] Encounters Date Type Department Care Team Description 05/13/2025 Telephone [facility] - Gastroenterology [facility] [address] [address] Rachana Ko APRN, FORM GRADER from Last 3 Months Social History Tobacco Use Types Packs/Day Years Used Date Smoking Tobacco: Never Assessed Comments Unknown Sex and Gender Information Value Date Recorded Sex Assigned at Not on file Legal Sex Female 7:24 AM CDT Gender Identity Not on file Sexual Orientation Not on file Plan of Treatment Upcoming Encounters Date Type Department Care Team (Late st Contact Info) Description 06/27/2025 10:00 AM CDT Office Visit [facility] [address] [place] [id number] Mushtaq Clemente, DO [address] [place] [id number] Health Maintenance Due Date Last Done Comments Hepatitis C Virus (HCV) Screening 1979 Mammogram 1979 Hepatitis B Immunization (1 of 3 - 19+ 3-dose series) 1998 Pap Smear 2000 Cervical Cancer Screening (CCS) 2009 HPV/Cotest 2009 Discussion re Starting/Frequency of Mammograms 2019 Cologuard 2024 Colonoscopy 2024 Colorectal Cancer Screening 2024 Immunochemical Fecal Occult Blood 2024 SARS-COV-2 Immunization ( season) 2024 Influenza Immunization (#1) 2025 10/0 07/2024, 10/20/2023, 08/19/2016, Additional history exists Respiratory Syncytial Virus (RSV) Immunization (Adult) (1 - 1-dose 75+ series) 2054 TdaP Immunization Completed 03/01/2020, 08/19/2016 Human Papillomavirus (HPV) Immunization Aged Out No longer eligible based on patient's age to complete this topic Meningococcal Immunization (ACWY) Aged Out No longer eligible based on patient's age to complete this topic Pneumococcal Immunization Combined Aged Out No longer eligible based on patient's age to complete this topic Rotavirus Immunization Aged Out No lo nger eligible based on patient's age to complete this topic Insurance [place] OUT OF [facility] [place] Care Teams Refrigerator Mover Relationship Specialty Start Date End Date Hair Avitia MD [address] [address] PCP - General Internal Medicine 05/06/25
--- OUTSIDE RECORDS SUMMARY | 2025-05-27 19:45 | XMS_ITS | Data Portability ---
Author Organization [facility] [email or web address], Main Office Address [address] [place] [address] Assessment No assessment recorded. Plan of Treatment Reminders Order Date Submit Date Provider Last Modified By Organization Details Last Modified Time Details Appointments None recorded. Lab CBC w/ auto diff [address] (Lab), [address] [place], [address], 3 14:40:16 CMP, serum or plasma [address] (Lab), [address] [place], [address], 3 14:40:17 lipid panel, serum [address] (Lab), [address] [place], [address], 3 14:40:17 CK (creatine kinase), total, serum [address] (Lab), [address] [place], [address], 3 14:40:17 glycohemogl obin, total, blood [address] (Lab), [address] [place], [address], 3 14:40:15 unlisted lab - free thyroxine w/TSH [address] (Lab), [address] [place], [address], 3 14:40:15 vitamin D3, 25-hydroxy, serum [address] (Lab), [address] [place], [address], 3 14:40:15 vitamin B12 + folate, serum or blood [address] (Lab), [address] [place], [address], 3 14:40:15 RPR (rapid plasma reagin), serum [address] (Lab), [address] [place], [address], 3 14:40:15 hsv (1+2) igg Ab, serum [address] (Lab), [address] [place], [address], 3 09:38:54 HIV (1+2) Ab screen, serum [address] (Lab), [address] [place], [address], 3 14:40:16 hepatitis C virus Ab, serum [address] (Lab), [address] [place], [address], 3 14:40:16 HBsAg (hepatitis B surface Ag), serum [address] (Lab), [address] [place], [address], 3 14:40:16 HIV (1+2) Ab screen, serum [address] (Lab), [address] [place], [address], 3 14:40:16 unlisted lab - CT, NG, trich vag by MORENA [address] (Lab), [address] [place], [address], 3 14:40:16 hepatitis panel (A+B+C), acute, serum [address] (Lab), [address] [place], [address], 3 14:40:16 Referral gynecologis t referral - Needs a pap smear , last one over 2 years ago . Thank you 2022 023 [email or web address] 3 Kris Matt MD, [address] [facility] [address], [place], [address], 3 07:55:44 Procedures None recorded. Surgeries None recorded. Imaging None recorded. Medication Orders escitalopra m 10 mg tablet 2022 023 [id number], [address], [place], [id number], 3 11:06:12 escitalopra m 20 mg tablet 2022 023 [id number], [address], [place], [id number], 3 11:06:11 Patient TargetsNo targets recorded. 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 Referral for Sc reening for malignant neoplasm of cervix Needs [...] SHILOH Tidwell [address], [address], [place], [address] , [facility] 3 10:59:00 Venereal disease screening Active 2022 SHILOH Tidwell [address], [address], [place], [address] , [facility] 3 10:59:10 At increased risk of nutritional deficit 383134712 Active 2022 SHILOH Tidwell [address], [address], [place], [address] , [facility] 3 10:59:32 Obese 396452190 Active 2022 SHILOH Tidwell [address], [place], [address] , [email or web address] 3 10:59:52 Anxiety 87644592 Active 2022 SHILOH Tidwell [address], [place], [address] , [email or web address] 3 11:04:39 Screening for malignant neoplasm of cervix Active 2022 SHILOH Tidwell [address], [place], [address] , [facility] 3 11:05:31 Acute urinary tract infection 939461736 [facility] 3 11:40:57 Increased frequency of urination 162584161 Active 2022 SHILOH Tidwell [address], [place], [address] , [facility] 3 11:55:29 Hyperlipidemi a 40353199 Active 2022 SHILOH Tidwell [address], [place], [address] , [facility] 3 16:52:22 Vitamin D deficiency 25547410 Active 2022 SHILOH Tidwell [address], [place], [address] , [facility] 3 16:52:36 Problem Notes None recorded. Procedures Surgical History Date Name Laterality Status Provider Name and Address Organization Details Recorded Time section completed Darcy Cardenas MA [facility] 07/21/2023 10:51:26 Tubal Ligation completed Darcy Cardenas MA [facility] 07/21/2023 10:51:37 Imaging Results None recorded. Procedure Notes None recorded. Medical Equipment None Reported. Allergies Allergen ID Allergen Name Allergen Category Reaction Reaction Severity Criticality Documentation Date Start Date Code Code System Note Provider Name and Address Organization Details Recorded Time 03741 latex environme nt,medica tion Not available Not available Not available 07/21/2023 49935 91 RxNorm [facility] 3 10:49:12 Medications Name Sig Start Date [...] 2022 active Not Available Not Available Not Avai lable Vitals Date Recorded Body weight Body mass index (BMI) Body height Body temperature Heart rate Oxygen saturation Oxygen saturation in Arterial blood by Pulse oximetry Systolic blood pressure Diastolic blood pressure Provider Name and Address Organization Details Last Updated DateTime 3 60152.1 8 g 36.3 kg/m2 152.4 cm 98.1 [degF] 91 /min 98 % 98 % 132 mm[Hg] 82 mm[Hg] Darcy Cardenas MA [facility] [email or web address] 3 10:44:07 Date Recorded Body height Body mass index (BMI) Body weight Body temperature Heart rate Oxygen saturation Oxygen saturation in Arterial blood by Pulse oximetry Systolic blood pressure Diastolic blood pressure Provider Name and Address Organization Details Last Updated DateTime 3 152.4 cm 36.1 kg/m2 61706.5 9 g 97.6 [degF] 86 /min 98 % 98 % 144 mm[Hg] 90 mm[Hg] Darcy Cardenas MA [facility] [email or web address] 3 11:00:13 Social History Question Answer Notes LastModified by Organizat ion Details LastModified Time Tobacco Smoking Status Never Smoker Darcy Cardenas MA null, [facility] [email or web address] 07/21/2023 10:50:57 What Is Your Level Of Caffeine Consumption? Occasional [email or web address] Information not available 07/21/2023 Do You Use Your Seat Belt Or Car Seat Routinely? Yes [email or web address] Information not available 07/21/2023 Do You Participate In Social Media? No [email or web address] Information not available 07/21/2023 Sex: Unknown Functional Status Question Answer Note LastModified by Organizat ion Details LastModified Time Do you use any illicit or recreational drugs? No [email or web address] Information not available 07/21/2023 What is your level of alcohol consumption? Occasional [email or web address] Information not available 07/21/2023 Mental Status Question Answer Note LastModified by Organization D etails LastModified Time Do you feel stressed (tense, restless, nervous, or anxious, or unable to sleep at night)? [email or web address] Information not available 07/21/2023 Family History Relationship Description Onset Age of this Age Resolved Age Notes LastModified by Organization Details LastModified Time Father No current problems or disability [email or web address] Not available 10:49:31 Mother No current problems or disability [email or web address] Not available 10:49:31 Medical History No medical history recorded. Gynecological HistoryNo gynecological history recorded. Obstetrics History GPAL:G 0 P 0 0 0 0 Past Encounters Encounter ID Performer Location Encounter Start Date Encounter Closed Date Diagnosis/Indication Diagnosis SNOMED-CT Code Diagnosis ICD10 Code Diagnosis Note [id number] Karla Ashford MD [facility] [place] [address] 07/21/2023 10:33:18 07/21/2023 11:12:11 Screening for disorder 898405859 Z13.9 Venereal d isease screening 227235922 Z11.3 At [facility] risk of nutritional deficit 185891311 Z91.89 Obese 659137735 E66.9 Anxiety 39069395 F41.9 [id number] Karla Asfhord MD [facility] [address] [place] [address] 08/04/2023 10:55:35 08/04/2023 11:11:46 Screening for malignant neoplasm of cervix 067925820 Z12.4 Anxiety 53847025 F41.9 Obese 115382223 E66.9 Health Concerns Section Related Observation LastModified by Organization Detai ls LastModified Time None Recorded Concern Status LastModified by Organization Details LastModified Time None Recorded Advance Directives Directive None Recorded Payers Insurance Date Sequence Insurance Name Policy Number Policy Cadena Covered Member ID Cadena Member ID Guarantor Name 04/04/2024 1 [place] [id number] Jessie Smith [id number] Jessie Smith 04/04/2024 2 [place] [id number] Jessie Smith [id number] Jessie Smith Notes Date Note Type Note Provider Name and Address Organization Details Recorded Time 07/21/2023 text/html 43 y/o : concentrating is difficult . Her has not been faithful , she has no symptom , but wants to be screened . She moved over here from [place] to get away from him . She was on a medicine over a year ago , cannot remember what . It helped. SHILOH Tidwell [address], [place], [address], [facility] 07/22/2023 11:27:57 08/04/2023 text/html doing better, le ss anxious SHILOH Tidwell [address], [place], [address], [facility] 08/07/2023 09:54:17 OBGyn Episode No OBEpisode recorded.
--- OUTSIDE RECORDS SUMMARY | 2025-05-27 19:45 | XMS_ITS | Clinical Summary ---
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
--- OUTSIDE RECORDS SUMMARY | 2025-05-27 19:45 | XMS_ITS | Referral Summary ---
Author Organization 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
[2025-05-27 20:29] VITALS: BP 162/109; PULSE 86; RESP 16; TEMP 36.8; O2SAT 100
[2025-05-27 21:07] VITALS: BP 155/103; PULSE 89; RESP 15; O2SAT 99
--- OUTSIDE RECORDS SUMMARY | 2025-05-27 21:26 | XMS_ITS | Clinical Summary ---
Author Organization [facility] [address] [facility] Address [address] 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
--- OUTSIDE RECORDS SUMMARY | 2025-05-27 21:26 | XMS_ITS | Referral Summary ---
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
--- OUTSIDE RECORDS SUMMARY | 2025-05-27 21:26 | XMS_ITS | Clinical Summary ---
Author Organization [facility] Address [address] [address] Phone Care Team Providers Care Building Insulation Supervisor Name Role Phone Hair Avitia MD Primary Care Provider [phone] Encounters Date Type Department Care Team Description 05/13/2025 Telephone [facility] - [facility] [address] [place] [address] Rachana Ko APRN, CROOK OPERATOR from Last 3 Months Social History Tobacco [...] CDT Office Visit [facility] [address] [place] [phone] Mushtaq Clemente, DO [address] [place] [phone] Health Maintenance Due Date Last Done Comments [...] [place] [facility] [place] Care Teams Building Insulation Supervisor Relationship Specialty Start Date End Date Hair Avitia MD [address] [address] PCP - General Internal Medicine 05/06/25
--- NOTE | 2025-05-27 21:46 | ED_ITS ---
HPI - Recheck/Abnormal Lab/Rx General Chief Complaint: Recheck/Abnormal Lab/Rx Stated Complaint: URI/SOB/iron Time Seen by Provider: 05/27/25 21:17 Source: patient Mode of arrival: ambulatory Limitations: no limitations History of Present Illness HPI narrative: Patient presents with report of a sore throat and congestion of a few days duration. Patient states she feels congested but has been unable to cough due to the pain she experiences because the sore throat when she tries to. Denies any underlying respiratory conditions. Nonsmoker. States she has had increased fatigue for several months. Was to get an iron infusion 1 point but missed the appointment. She states she called her primary care physician is unable to reschedule this infusion for several months and had requested that an iron level be rechecked. Patient's blood pressure was initially elevated, denies a history. Patient started developing chest pain only after coughing. She denies any dysphonia or difficulty opening her mouth. No history of tonsillectomy. Has been using Mucinex at home. PCP Bello. Has had 1 previous blood transfusion. History of heavy mentstrual periods. Currently menstruating now. Related Data Allergies Allergy/AdvReac Type Severity Reaction Status Date / Time latex AdvReac Hives Verified 05/27/25 19:44 [facility] Past Medical History Medical History Anemia History of blood transfusion x1 Heavy menstrual period Family History Family History (Updated 06/20/24 @ 08:46 by WILLIAM Parikh) Father No problems noted. Mother Diabetes mellitus Sibling No problems noted. Social History Social History (Updated 06/20/24 @ 08:47 by WILLIAM Parikh) Smoking status: Never smoker Second hand tobacco smoke exposure: Yes Alcohol intake: current Substance use: never Substance use type: does not use Do You Feel Safe in your Home?: Yes Lack of Transportation: No Lack of Food: Never True Current Housing: I Have Housing Concerned About Future Housing: No Difficulty Paying Gas/Electric Bills: Decline to Answer Difficulty Paying for Meds: Decline to Answer Currently Unemployed: Decline to Answer Education: Trade/Vocational Certificate Difficulty w/ Childcare or Family Care: No Living arrangements: with family 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 HEAD: Normocephalic, atraumatic. EYES: Non injected, non icteric ENT: Nares clear, no rhinorrhea or epistaxis. Gross auditory acuity intact. No dysphonia. No trismus. Posterior oropharynx mildly hyperemic. No tonsillar swelling or exudate. Uvula midlien. NECK: Supple. No meningismus. Mild lymphadenopathy. CHEST: Speaking in full sentences. No respiratory distress. Lungs clear to auscultation bilaterally without appreciable wheezes crackles or areas of focal consolidation. HEART: Regular rate and rhythm. . ABDOMEN: Soft, nondistended. No rigidity or guarding. Not peritoneal EXTREMITIES: Normal range of motion. No lower extremity edema. SKIN: Warm, dry, no rash. NEURO: No focal deficits. Alert and oriented. Answering questions. Following commands. Normal speech without aphasia or dysarthria. PSYCH: Normal mood and affect. Course Vital Signs Vital signs: Vital Signs Temperature 98.2 F 05/27/25 20:29 Pulse Rate 86 05/27/25 20:29 Respiratory Rate 16 05/27/25 20:29 Blood Pressure 162/109 H 05/27/25 20:29 Pulse Oximetry 100 05/27/25 20:29 Oxygen Delivery Room Air 05/27/25 20:29 Temperature 98.2 F 05/27/25 20:29 Pulse Rate 83 05/27/25 23:52 Respiratory Rate 17 05/27/25 23:52 Blood Pressure 146/92 H 05/27/25 23:52 Pulse Oximetry 99 05/27/25 23:52 Oxygen Delivery Room Air 05/27/25 20:29 MDM - Recheck/Abnormal Lab/Rx MDM Narrative Medical decision making narrative: Patient presents with report of sore throat cough and congestion a few days. She also reports that she is anemic and had been due for an iron infusion but missed this appointment and has been feeling increased fatigue of several months. History of heavy periods. In the emergency department she is afebrile with vital signs notable for hypertension Centor Score - estimates probability that pharyngitis is streptococcal and suggests mgmt Age (3-14 years = +1, 15-44 years = 0, >45 years = -1): -1 Exudate or tonsillar swelling (No 0, Yes +1): 0 Anterior cervical lymphadenopathy (No 0, Yes +1): 1 Temp > 38C (No 0, Yes +1): 0 Cough (present 0 , absent +1): 0 0 points: 1-2% likelihood of Strep. No further testing or antibiotic Patient is a reassuring physical exam with no dysphonia or trismus. Normocytic anemia, stable from previous. Iron level and TIBC within normal limits. Ferritin normal. Patient prescribed iron, Tessalon Perles, and Cepacol lozenges. Stable for dischareg. Patient is seen walking out of the emergency department. She is doing so with a stable gait, talking on the phone and does acknowledge me and say thanks. She is well appearing, does not appear unsteady or dyspneic which is reassuring. Differential Diagnosis Differential diagnosis: Likely other (Pharyngitis, considered strep pharyngitis, acute viral syndrome, bronchitis; low suspicion for pneumonia; anemia) Lab Data Attestation: I reviewed the patient's lab results. 05/27/25 22:21 05/27/25 22:21 Labs: Lab Results 05/27/25 05/27/25 Range/Units 21:48 22:21 WBC 9.3 (4.5-10.0) K/mm3 RBC 4.22 (4.2-5.4) M/mm3 Hgb 10.2 L (12.0-15.0) g/dL Hct 34.0 L (37.0-47.0) % MCV 80.6 (80-100) fl MCH 24.2 L (26-34) pg MCHC 30.0 L (32-36) g/dl RDW 18.8 H (11.5-14.5) % Plt Count 264 (150-375) k/mm3 MPV 9.8 (7.4-10.4) fl Immature Gran % (Auto) 0.4 (0-0.5) % Neut % (Auto) 81.8 H (45.5-73.1) % Lymph % (Auto) 11.0 L (18.3-44.2) % [place]alle % (Auto) 6.1 (2.6-8.5) % Eos % (Auto) 0.4 (0-4.4) % Baso % (Auto) 0.3 (0.2-1.2) % Lymph # (Auto) 1.02 (0.9-3.2) K/mm3 [place]alle # (Auto) 0.6 (0.1-0.6) K/mm3 Eos # (Auto) 0.0 (0-0.3) K/mm3 Baso # (Auto) 0.0 (0.0-0.1) K/mm3 Abs Immat Gran (auto) 0.04 H (0.00-0.031) K/mm3 Absolute Neuts (auto) 7.6 H (1.3-6.7) K/mm3 Absolute Nucleated RBC 0.000 (0.0-0.012) K/mm3 Nucleated RBC % 0.0 (0.0-0.2) % Creatinine 0.73 (0.7-1.0) mg/dL Estim Creat Clear Calc Not Reportable Estimated GFR > 60 (59 - ) Iron 41 (37-170) ug/dL TIBC 416 (261-462) ug/dL % Saturation 10 L (20-50) % Ferritin 10.50 (6.24-137) ng/mL Influenza A (RT-PCR) Negative (Negative) Influenza B (RT-PCR) Negative (Negative) RSV (RT-PCR) Negative (Negative) SARS-CoV-2 RNA (RT-PCR) Negative (Negative) Imaging Data Radiologist's impression: IMPRESSION: Prominent bronchovascular markings in the lower lobes medially which may indicate bronchitis versus early bronchopneumonia. Follow-up advised. Discharge Plan Discharge Clinical Impression: Normocytic anemia, Pharyngitis, Bronchitis Patient Disposition: Home Condition: Stable Instructions: Antibiotic Form, Pharyngitis (ED), Acute Bronchitis (ED), Anemia (ED) Additional Instructions: Your hemoglobin and hematocrit do show that you are anemic but it is stable from previous. Your ferritin, iron, and total iron binding capacity are all normal. You are being prescribed iron supplementation for your anemia. It is just as efficacious to take this every other day with fewer GI side effects. It is best absorbed when taken with vitamin C so take this with orange juice, etc. You tested negative for COVID, influenza a, RSV, and influenza B. Your x-ray was suspicious for bronchitis. Rest and maintain your hydration. The medications had been prescribed can help. Follow-up with your primary care physician. Return with new or worsening symptoms. Patient Language: Welsh Prescriptions: New ferrous sulfate 325 mg (65 mg iron) tablet 325 mg PO EVERY OTHER DAY 30 Days Qty: 15 0RF Sore Throat and Cough 5-7.5 mg lozenge 1 neri PO Q4H PRN (Reason: sore throat) Qty: 18 0RF benzonatate 100 mg capsule 100 mg PO BID PRN (Reason: cough) Qty: 20 0RF No Action amoxicillin-pot clavulanate 875-125 mg tablet 1 tablet PO Q12H Qty: 20 0RF naproxen 375 mg tablet 375 mg PO BID Qty: 14 0RF Follow-up/Referrals: Endy Deras MD [Primary Care Provider] - Stand Alone Forms: Work/School Release IP Time of Disposition: 23:34
[2025-05-27 22:27] LABS: Hematocrit 34.0 % (37.0-47.0); Hemoglobin 10.2 g/dL (12.0-15.0); Immature Granulocyte Percent A 0.4 % (0-0.5); Lymphocytes Absolute Auto 1.02 K/mm3 (0.9-3.2); Mean Corpuscular HGB Conc 30.0 g/dl (32-36); Mean Corpuscular Hemoglobin 24.2 pg (26-34); Mean Corpuscular Volume 80.6 fl (80-100); Nucleated Red Blood Cells Absolute Auto 0.000 K/mm3 (0.0-0.012); Nucleated Red Blood Cells Perc 0.0 % (0.0-0.2); Platelet Count Result 264 k/mm3 (150-375); Red Blood Count 4.22 M/mm3 (4.2-5.4); White Blood Count 9.3 K/mm3 (4.5-10.0)
[2025-05-27] MEDS: BENZONATATE 100 MG CAPSULE PO (22:29)
[2025-05-27 22:30] VITALS: RESP 16; O2SAT 99
[2025-05-27 22:31] LABS: Influenza A QL RT-PCR Negative (Negative); Influenza B QL RT-PCR Negative (Negative); RSV RNA, RT-PCR Negative (Negative); SARS-CoV-2 RNA PCR Negative (Negative)
[2025-05-27] MEDS: BENZOCAINE/MENTHOL (*BKC) 18 EA LOZENGE 1 LOZENGE PO (22:31)
[2025-05-27 22:43] LABS: Estimated Glomerular Filt Rate > 60; Iron 41 ug/dL (37-170)
[2025-05-27 22:53] LABS: Percent Iron Saturation 10 % (20-50)
[2025-05-27 23:20] LABS: Ferritin 10.50 ng/mL (6.24-137)
[2025-05-27 23:51] VITALS: BP 146/92; PULSE 83; RESP 17; O2SAT 99
[2025-05-27 23:52] VITALS: BP 146/92; PULSE 83; RESP 17; O2SAT 99
== END 2025-05-27 23:56 | disposition home or self-care (01) ==
PROVIDERS: Emergency Provider Student in an Organized Health Care Education/Training Program; PCP Emergency Medicine
DX: J40 Bronchitis, not specified as acute or chronic (principal); J02.9 Acute pharyngitis, unspecified; Z20.822 Contact with and (suspected) exposure to COVID-19; D64.9 Anemia, unspecified
CPT/HCPCS: 36415; 71045; 82565; 82728; 83540; 83550; 85025; 87637; 99283; A9270; J8540

== ENCOUNTER 2025-10-08 12:45 | Emergency (ER) | payer OTHER, BC, SELFPAY ==
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
[2025-10-08 12:45] VITALS: BP 150/90; PULSE 90; RESP 16; TEMP 36.3; O2SAT 99
--- OUTSIDE RECORDS SUMMARY | 2025-10-08 13:46 | XMS_ITS | Clinical Summary ---
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 Gender Identity Not on file Sexual Orientation [...] Screening 11/28/2020 11/28/2019 Covid-19 Vaccine (3 - 2024-2 6 season) 2025 01/26/2023, 08/05/2021 Influenza Vaccine (#1) 2025 3, 08/19/2016, 12/25/2015 DTaP/Tdap/Td Vaccine (4 - Td or Tdap) 03/01/2030 03/01/2020, 05/16/2017, 08/19/2016 HPV Vaccines Aged Out No longer eligi ble based on patient's age to complete this topic Pneumococcal vaccine <65 Aged Out No longer eligible based on patient's age to complete this topic Insurance [facility] ACC[facility] Care Teams Electronic Publications Specialist Relationship Specialty Start Date End Date Tables, Jhony Weinstein MD PCP - General Family Medicine 08/30/19
--- OUTSIDE RECORDS SUMMARY | 2025-10-08 13:46 | XMS_ITS | Clinical Summary ---
Author Organization [facility] Address [address] [address] Phone Care Team Providers Care Tomb Maker Helper Name Role Phone Hair Avitia MD Primary Care Provider [phone] Social History Tobacco Use Types Packs/Day Years Used Date Smoking Tobacco: Never Assessed Comments Unknown Sex and Gender Information Value Date Recorded Sex Assigned at Not on file Legal Sex Female 7:24 AM CDT Gender Identity Not on file Sexual Orientation Not on file Plan of Treatment Health Maintenance Due Date Last Done Comments Hepatitis C Virus (HCV) Screening 1979 Mammogram 1979 Hepatitis B Immunization (1 of 3 - 19+ 3-dose series) 1998 Pap Smear 2000 Cervical Cancer Screening (CCS) 2009 HPV/Cotest 2009 Discussion re Starting/Frequency of Mammograms 2019 Cologuard 2024 Colonoscopy 2024 Colorectal Cancer Screening 2024 Immunochemical Fecal Occult Blood 2024 Influenza Immunization (#1) 2025 10/0 07/2024, 10/20/2023, 08/19/2016, Additional history exists SARS-COV-2 Immunization (2024- season) 2025 Respiratory Syncytial Virus (RSV) Immunization (Adult) (1 [...] this topic [place] Care Teams Tomb Maker Helper Relationship Specialty Start Date End Date Hair Avitia MD [address] [facility] [address] [place] [id number] PCP - General Internal Medicine 05/06/25
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
[2025-10-08] MEDS: ACETAMINOPHEN 500 MG TABLET 1000 MG PO (15:47)
--- OUTSIDE RECORDS SUMMARY | 2025-10-08 16:22 | XMS_ITS | Clinical Summary ---
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
--- OUTSIDE RECORDS SUMMARY | 2025-10-08 16:22 | XMS_ITS | Clinical Summary ---
Author Organization [facility] Address [address] [address] Phone Care Team Providers Care Disc Pad Grinder Name Role Phone Hair Avitia MD Primary Care Provider [phone] Social History Tobacco Use Types Packs/Day Years [...] [place] Care Teams Disc Pad Grinder Relationship Specialty Start Date End Date Hair Avitia MD [address] [facility] [address] [place] [phone] PCP - General Internal Medicine 05/06/25
== END 2025-10-08 16:57 | disposition home or self-care (01) ==
PROVIDERS: Emergency Provider Physician Assistant; PCP Emergency Medicine
DX: S16.1XXA Strain of muscle, fascia and tendon at neck level, initial encounter (principal); Z77.22 Contact with and (suspected) exposure to environmental tobacco smoke (acute) (chronic); Z86.2 Personal history of diseases of the blood and blood-forming organs and certain disorders involving the immune mechanism; M47.812 Spondylosis without myelopathy or radiculopathy, cervical region; M47.814 Spondylosis without myelopathy or radiculopathy, thoracic region; M47.816 Spondylosis without myelopathy or radiculopathy, lumbar region; M41.9 Scoliosis, unspecified; V44.0XXA Car driver injured in collision with heavy transport vehicle or bus in nontraffic accident, initial encounter
CPT/HCPCS: 70450; 72125; 72128; 99284; A9270

== ENCOUNTER 2025-10-18 22:45 | Emergency (ER) | payer BC, SELFPAY ==
--- NOTE | ~2025-10-18 | XR_ITS ---
Examination: XR wrist RT min 3V Clinical History: RIGHT WRIST PAIN. Comparison: Right wrist 05/03/2025 Technique: 4 views right wrist Findings/impression: 1. No fracture or dislocation right wrist. 2. Mild degenerative changes basal joint of thumb and first MCP joint. Reviewed, dictated and finalized at location R. CORN PRODUCTION MANAGER
[2025-10-18 22:48] VITALS: BP 177/103; PULSE 72; RESP 16; TEMP 35.6; O2SAT 100
--- OUTSIDE RECORDS SUMMARY | 2025-10-18 22:49 | XMS_ITS | Clinical Summary ---
Author Organization [facility] Address [address] [address] Phone Care Team Providers Care Peanut Shaker Name Role Phone Hair Avitia MD Primary Care Provider [phone] Social History Tobacco Use Types Packs/Day Years [...] [place] Care Teams Peanut Shaker Relationship Specialty Start Date End Date Hair Avitia MD [address] [facility] [address] [place] [phone] PCP - General Internal Medicine 05/06/25
--- OUTSIDE RECORDS SUMMARY | 2025-10-18 22:50 | XMS_ITS | Clinical Summary ---
Author Organization [facility] [address] [facility] Address [address] [facility] 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
--- NOTE | 2025-10-18 22:59 | ED.EXTPRO ---
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 Complaint: extremity pain Onset (ago): hour(s) Pain Consistency: constant Location: right Severity scale (1-10): 6 Quality: aching Relieving factors: immobilization Exacerbating factors: range of motion Related Data Allergies Allergy/AdvReac Type Severity Reaction Status Date / Time latex AdvReac Hives Verified 10/18/25 23:08 Review of Systems Review of Systems: All systems reviewed & are unremarkable except as noted in HPI and below PMFSH Past Medical History Medical History Anemia History of blood transfusion x1 Heavy menstrual period Family History Family History Father No problems noted. Mother Diabetes mellitus Sibling No problems noted. Social History Social History Smoking status: Never smoker Second hand tobacco smoke exposure: Yes Alcohol intake: current Substance use: never Substance use type: does not use Do You Feel Safe in your Home?: Yes Lack of Transportation: No Lack of Food: Never True Current Housing: I Have Housing Concerned About Future Housing: No Difficulty Paying Gas/Electric Bills: Decline to Answer Difficulty Paying for Meds: Decline to Answer Currently Unemployed: Decline to Answer Education: Trade/Vocational Certificate Difficulty w/ Childcare or Family Care: No Living arrangements: with family Occupation/Education: occupation 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 Course Course Emergency Course: Medical decision making narrative: The patient was evaluated by myself in the emergency department. History obtained from the patient who is an and historian physical exam performed and witnessed by tech. X-ray performed shows no acute fractures. Patient had a positive Lucie test and Pavan wrap was applied patient received 10mg p.o. Toradol for pain relief. Repeat assessment: Patient doing well on repeat exam with no acute distress Symptoms have improved since arrival to the ED Repeat vitals are stable Patient agrees with discussion after shared medical decision-making and agrees with discharge. All questions answered to the patient's satisfaction Advised follow-up with primary care physician within next 3 to 5 days for further evaluation and treatment. Vital Signs Vital signs: Vital Signs Temperature 35.6 C L 10/18/25 22:48 Pulse Rate 72 10/18/25 22:48 Respiratory Rate 16 10/18/25 22:48 Blood Pressure 177/103 H 10/18/25 22:48 Pulse Oximetry 100 10/18/25 22:48 Oxygen Delivery Room Air 10/18/25 22:48 Temperature 35.6 C L 10/18/25 22:48 Pulse Rate 72 10/18/25 22:48 Respiratory Rate 16 10/18/25 22:48 Blood Pressure 177/103 H 10/18/25 22:48 Pulse Oximetry 100 10/18/25 22:48 Oxygen Delivery Room Air 10/18/25 22:48 Critical Care Time Critical Care Time Critical Care Time: No Discharge Plan Discharge Clinical Impression: Tendinitis Patient Disposition: Home Condition: Stable Instructions: Antibiotic Form, Tendinitis (ED) Additional Instructions: Advised patient to take medication as prescribed and follow-up with primary care physician within next 3 to 5 days for further evaluation and treatment. Patient Language: Azeri Prescriptions: New naproxen 500 mg tablet 500 mg PO BID Qty: 14 0RF Rx Instructions: Take medication with meals No Action cyclobenzaprine 10 mg tablet 10 mg PO TID PRN (Reason: muscle spasm) Qty: 14 0RF amoxicillin-pot clavulanate 875-125 mg tablet 1 tablet PO Q12H Qty: 20 0RF naproxen 375 mg tablet 375 mg PO BID Qty: 14 0RF ferrous sulfate 325 mg (65 mg iron) tablet 325 mg PO EVERY OTHER DAY 30 Days Qty: 15 0RF Sore Throat and Cough 5-7.5 mg lozenge 1 neri PO Q4H PRN (Reason: sore throat) Qty: 18 0RF benzonatate 100 mg capsule 100 mg PO BID PRN (Reason: cough) Qty: 20 0RF Follow-up/Referrals: Endy Deras MD [Primary Care Provider, Family Practice]
[2025-10-18] MEDS: KETOROLAC 10 MG TABLET PO (23:11)
== END 2025-10-18 23:28 | disposition home or self-care (01) ==
PROVIDERS: Emergency Provider Emergency Medicine; PCP Emergency Medicine
DX: M77.9 Enthesopathy, unspecified (principal)
CPT/HCPCS: 73110; 99283; A9270